=== PATIENT | male | born 1965 | race African-American/Black ===

== ENCOUNTER 2017-02-04 19:33 | Inpatient (IN) | payer BC ==
[~2017-02-04] VITALS: Ht 198.1 cm; Wt 98.1 kg
[2017-02-04] MEDS ORDERED: SODIUM CHLORIDE 0.9% 1,000 ML IV ONE ×2 (20:47→22:47)
[2017-02-04 23:15] LABS: DEFINITIVE VIEW TRANSMISSION; Hematocrit 26.1 % (41.0-53.0); Hemoglobin 7.8 g/dL (13.5-17.5); Mean Corpuscular Hemoglobin 25.8 pg (28.0-32.0); Mean Corpuscular Volume 85.8 fL (80.0-100.0); Mean Platelet Volume 9.1 fL (7.4-10.4); Platelet Count (auto) 172 10^3/uL (140-450); Red Cell Distribution Width 15.5 % (11.6-16.0); SUSPECT VIEW TRANSMISSION; White Blood Cell 7.8 10^3/uL (4.4-10.8)
[2017-02-04 23:25] LABS: Metamyelocytes % 0; Myelocytes % 0; Promyelocytes % 0; Reactive Lymphocytes 0
[2017-02-04] MEDS ORDERED: PIPERACILLIN-TAZOB 3.375GM 100 ML IV ONE (23:30)
[2017-02-04] MEDS ORDERED: VANCOMYCIN 1GM/250ML D5W 250 ML IV ONE (23:30)
[2017-02-04 23:31] LABS: Albumin 1.4 g/dL (3.4-5.0); Anion Gap 11 (5-15); Blood Urea Nitrogen 17 mg/dL (7-18); Calcium 7.1 mg/dL (8.5-10.1); Carbon Dioxide 22 mmol/L (21-32); Chloride 105 mmol/L (98-107); Glucose 75 mg/dL (74-106); Potassium 3.3 mmol/L (3.5-5.1); Sodium 138 mmol/L (136-145)
[2017-02-04 23:34] LABS: Aspartate Aminotransferase 24 U/L (15-37); BUN/Creatinine Ratio 18.3; GFR African American 110 mL/min; GFR Non-African American 91 mL/min; Partial Thromboplastin Time 43.3 sec (22.64-33.71)
[2017-02-04 23:35] LABS: INR 1.23 (0.9-1.15); Prothrombin Time 13.3 sec (9.37-12.3)
[2017-02-04 23:38] LABS: Alkaline Phosphatase 77 U/L (45-117); Bilirubin, Total 0.3 mg/dL (0.2-1.0); Total Protein 6.1 g/dL (6.4-8.2)
[2017-02-04] MEDS ORDERED: ACETAMINOPHEN 325 MG TAB PO ONE (23:45)
[2017-02-05] VITALS (49 sets, daily range): BP systolic 85–134; BP diastolic 47–88
[2017-02-05 00:03] LABS: Anisocytosis Slight; Hypochromia Slight; Ovalocytes MODERATE; Platelet Estimate Adequate
[2017-02-05] MEDS ORDERED: IOHEXOL 350 MG/ML 100ML IJ ONE (01:17)
[2017-02-05] MEDS ORDERED: IBUPROFEN 600 MG TAB PO ONE (03:15)
[2017-02-05] MEDS ORDERED: VANCOMYCIN PER PHARMACY 0 MG IV SCH (03:15)
[2017-02-05] MEDS ORDERED: IBUPROFEN 600 MG TAB PO PRN (03:15)
[2017-02-05] MEDS ORDERED: MORPHINE SULF INJ 2 MG/ML SYRINGE 1ML IV PRN ×2 (03:15)
[2017-02-05] MEDS ORDERED: ONDANSETRON HCL 4 MG/2 ML VIAL IV PRN (03:15)
[2017-02-05] MEDS ORDERED: HYDROcodone-ACET 5/325MG TAB PO PRN (03:15)
[2017-02-05] MEDS ORDERED: NITROGLYCERIN 0.4 MG SL TAB SL PRN (03:15)
[2017-02-05 04:02] LABS: Hematocrit 29.9 % (41.0-53.0); Hemoglobin 9.6 g/dL (13.5-17.5)
[2017-02-05] MEDS ORDERED: ACETAMINOPHEN 325 MG TAB PO ONE (04:15)
[2017-02-05] MEDS: PIPERACILLIN-TAZOB 3.375GM 100 ML IV SCH ×4 (06:30→23:45)
[2017-02-05] MEDS: SUCRALFATE 1 GM TAB PO SCH ×4 (07:00→22:18)
[2017-02-05 07:06] LABS: Urine Bilirubin Negative (Negative); Urine Color Yellow (Yellow); Urine Glucose Normal (Normal); Urine Hyaline Cast FEW /lpf (0 - 2); Urine Ketone Negative (Negative); Urine RBC 9 /hpf (0 - 3); Urine Squamous Epithelial Cell FEW /hpf (<5); Urine Urobilinogen Normal (Negative); Urine pH 7.5 (5.0-8.0)
[2017-02-05 07:37] LABS: Urine Blood 1+ /uL (Negative); Urine Nitrite POSITIVE (Negative)
[2017-02-05 08:14] LABS: Partial Thromboplastin Time 43.4 sec (22.64-33.71)
[2017-02-05 08:15] LABS: INR 1.22 (0.9-1.15); Prothrombin Time 13.2 sec (9.37-12.3)
[2017-02-05] MEDS: SODIUM CHLORIDE 0.9% 1,000 ML IV SCH ×2 (09:00→17:25)
[2017-02-05] MEDS: PANTOPRAZOLE 40 MG TAB PO SCH ×2 (09:46→22:18)
[2017-02-05] MEDS: VANCOMYCIN 1GM/250ML D5W 250 ML IV SCH ×2 (09:46→17:29)
[2017-02-05] MEDS ORDERED: SODIUM CHLORIDE 0.9% 1,000 ML IV ONE (10:30)
[2017-02-05] MEDS ORDERED: LIDOCAINE 2% JELLY 11ml (GLYDO) UR ONE (11:45)
[2017-02-05] MEDS ORDERED: LIDOCAINE HCL 2% TOP JELLY 5ML TOP ONE (12:00)
[2017-02-05] MEDS ORDERED: POTASSIUM CHL 20 Meq TABLET PO ONE ×2 (13:00→15:29)
[2017-02-05] MEDS ORDERED: VITAMINS A & D (TOPICAL) OINT 5GM TOP ONE (17:39)
[2017-02-06] VITALS (14 sets, daily range): BP systolic 98–109; BP diastolic 55–76
[2017-02-06] MEDS: VANCOMYCIN 1GM/250ML D5W 250 ML IV SCH ×3 (02:24→10:00)
[2017-02-06 03:06] LABS: Hematocrit 24.4 % (37.5-51.0); Hemoglobin 8.2 g/dL (12.6-17.7); Immature Granulocytes 1 % (.); MCH 27.6 pg (26.6-33.0); MCHC 33.6 g/dL (31.5-35.7); MCV 82 fL (79-97); Monocytes 8 % (.); Neutrophils 83 % (.); Platelets 186 x10E3/uL (150-379); RBC 2.97 x10E6/uL (4.14-5.80); RDW 16.4 % (12.3-15.4); WBC 9.5 x10E3/uL (3.4-10.8)
[2017-02-06 04:12] LABS: Albumin 1.2 g/dL (3.4-5.0); Calcium 7.1 mg/dL (8.5-10.1); Potassium 3.7 mmol/L (3.5-5.1)
[2017-02-06 04:14] LABS: BUN/Creatinine Ratio 17.3
[2017-02-06 04:16] LABS: Bilirubin, Total 0.4 mg/dL (0.2-1.0); Total Protein 5.6 g/dL (6.4-8.2)
[2017-02-06 04:40] LABS: Basophils # (auto) 0 uL; DEFINITIVE VIEW TRANSMISSION; Eosinophils # (auto) 0 uL; Eosinophils % (auto) 0.1 % (0.0-7.0); Hematocrit 24.7 % (41.0-53.0); Lymphocytes # (auto) 0.7 uL; Lymphocytes % (auto) 7.8 % (10.0-50.0); Mean Corpuscular Hemoglobin 27.7 pg (28.0-32.0); Mean Corpuscular Hgb Conc. 32.3 g/dL (32.0-36.0); Mean Corpuscular Volume 85.8 fL (80.0-100.0); Mean Platelet Volume 10.3 fL (7.4-10.4); Monocytes # (auto) 0.5 uL; Monocytes % (auto) 5.5 % (0.0-12.0); Neutrophils # (auto) 7.7 uL; Neutrophils % (auto) 86.6 % (37.0-80.0); Platelet Count (auto) 182 10^3/uL (140-450); Red Cell Distribution Width 16.1 % (11.6-16.0); SUSPECT VIEW TRANSMISSION; White Blood Cell 8.9 10^3/uL (4.4-10.8)
[2017-02-06] MEDS: PIPERACILLIN-TAZOB 3.375GM 100 ML IV SCH ×2 (06:19→11:44)
[2017-02-06] MEDS: SUCRALFATE 1 GM TAB PO SCH ×4 (06:19→23:07)
[2017-02-06] MEDS: SODIUM CHLORIDE 0.9% 1,000 ML IV SCH ×2 (07:15→22:03)
[2017-02-06] MEDS ORDERED: metroNIDAZOLE 500 MG TAB PO ONE (09:00)
[2017-02-06] MEDS: PANTOPRAZOLE 40 MG TAB PO SCH (09:36)
[2017-02-06 14:06] LABS: Absolute CD 4 Helper 55 /uL (359-1519)
[2017-02-06] MEDS ORDERED: cefTRIAXone 1GM/50ML D5W 50 ML IV ONE (14:15)
[2017-02-06] MEDS: metroNIDAZOLE 500 MG TAB PO SCH ×2 (14:36→23:06)
[2017-02-06] MEDS: TAMSULOSIN HYDROCHLORIDE 0.4 MG CAP PO SCH (17:29)
[2017-02-06] MEDS: VANCOMYCIN 1,250 MG in D5W 5% 250 ML IV SCH (23:06)
[2017-02-06] MEDS: FLORASTOR (S. BOULARDII) 250 MG CAP PO SCH (23:07)
[2017-02-07] VITALS (12 sets, daily range): BP systolic 97–117; BP diastolic 61–75
[2017-02-07] MEDS: SUCRALFATE 1 GM TAB PO SCH ×4 (06:16→21:53)
[2017-02-07] MEDS: metroNIDAZOLE 500 MG TAB PO SCH ×3 (06:16→21:53)
[2017-02-07] MEDS ORDERED: PANT40TA2 PO (06:40)
[2017-02-07] MEDS ORDERED: SUCR1TAB PO (06:42)
[2017-02-07] MEDS ORDERED: LACT10CA2 OR (06:44)
[2017-02-07 06:52] LABS: Basophils # (auto) 0 uL; Basophils % (auto) 0.2 % (0.0-2.0); DEFINITIVE VIEW TRANSMISSION; Eosinophils # (auto) 0.1 uL; Eosinophils % (auto) 0.7 % (0.0-7.0); Hematocrit 23.3 % (41.0-53.0); Hemoglobin 7.6 g/dL (13.5-17.5); Lymphocytes # (auto) 0.7 uL; Lymphocytes % (auto) 8.7 % (10.0-50.0); Mean Corpuscular Hemoglobin 27.7 pg (28.0-32.0); Mean Corpuscular Hgb Conc. 32.7 g/dL (32.0-36.0); Mean Corpuscular Volume 84.7 fL (80.0-100.0); Mean Platelet Volume 9.7 fL (7.4-10.4); Monocytes # (auto) 0.4 uL; Monocytes % (auto) 5.2 % (0.0-12.0); Neutrophils # (auto) 6.9 uL; Neutrophils % (auto) 85.2 % (37.0-80.0); Platelet Count (auto) 188 10^3/uL (140-450); Red Cell Distribution Width 16.1 % (11.6-16.0); White Blood Cell 8.1 10^3/uL (4.4-10.8)
[2017-02-07 07:00] LABS: Calcium 7.3 mg/dL (8.5-10.1)
[2017-02-07] MEDS: BOOST PLUS 8 ounce PO SCH ×2 (09:36→21:53)
[2017-02-07] MEDS: cefTRIAXone 1GM/50ML D5W 50 ML IV SCH (09:39)
[2017-02-07] MEDS: VANCOMYCIN 1,250 MG in D5W 5% 250 ML IV SCH ×2 (09:39→21:53)
[2017-02-07] MEDS: PANTOPRAZOLE 40 MG TAB PO SCH (09:40)
[2017-02-07] MEDS: FLORASTOR (S. BOULARDII) 250 MG CAP PO SCH ×2 (09:40→21:53)
[2017-02-07] MEDS ORDERED: POTASSIUM CHL 20 Meq TABLET PO ONE (10:15)
[2017-02-07] MEDS ORDERED: FLUCONAZOLE 100 MG TAB PO ONE (11:45)
[2017-02-07] MEDS: TAMSULOSIN HYDROCHLORIDE 0.4 MG CAP PO SCH (17:59)
[2017-02-08 05:39] VITALS: BP 102/69
[2017-02-08] MEDS: metroNIDAZOLE 500 MG TAB PO SCH ×3 (06:18→20:36)
[2017-02-08] MEDS: SUCRALFATE 1 GM TAB PO SCH ×4 (06:18→20:35)
[2017-02-08 07:20] LABS: BUN/Creatinine Ratio 13.2; Calcium 7.2 mg/dL (8.5-10.1); Potassium 3.1 mmol/L (3.5-5.1)
[2017-02-08 07:22] VITALS: BP 99/66
[2017-02-08 07:23] LABS: Basophils # (auto) 0 uL; Basophils % (auto) 0.3 % (0.0-2.0); Eosinophils # (auto) 0 uL; Eosinophils % (auto) 0.3 % (0.0-7.0); Hematocrit 26.2 % (41.0-53.0); Hemoglobin 8.6 g/dL (13.5-17.5); Lymphocytes # (auto) 0.6 uL; Lymphocytes % (auto) 10.4 % (10.0-50.0); Mean Corpuscular Hemoglobin 27.5 pg (28.0-32.0); Mean Corpuscular Volume 83.1 fL (80.0-100.0); Mean Platelet Volume 9.8 fL (7.4-10.4); Monocytes # (auto) 0.4 uL; Monocytes % (auto) 6.7 % (0.0-12.0); Neutrophils # (auto) 4.4 uL; Neutrophils % (auto) 82.3 % (37.0-80.0); Platelet Count (auto) 223 10^3/uL (140-450); Red Cell Distribution Width 17.5 % (11.6-16.0); SUSPECT VIEW TRANSMISSION; White Blood Cell 5.4 10^3/uL (4.4-10.8)
[2017-02-08 09:05] LABS: Basophils # (auto) 0 uL; Basophils % (auto) 0.5 % (0.0-2.0); Eosinophils # (auto) 0 uL; Eosinophils % (auto) 0.4 % (0.0-7.0); Hematocrit 28.7 % (41.0-53.0); Hemoglobin 9.4 g/dL (13.5-17.5); Lymphocytes # (auto) 0.6 uL; Mean Corpuscular Hemoglobin 27.3 pg (28.0-32.0); Mean Corpuscular Hgb Conc. 32.9 g/dL (32.0-36.0); Mean Corpuscular Volume 83.2 fL (80.0-100.0); Mean Platelet Volume 9.5 fL (7.4-10.4); Monocytes # (auto) 0.4 uL; Monocytes % (auto) 6.4 % (0.0-12.0); Neutrophils # (auto) 4.5 uL; Neutrophils % (auto) 81.7 % (37.0-80.0); Platelet Count (auto) 240 10^3/uL (140-450); Red Cell Distribution Width 17.7 % (11.6-16.0); SUSPECT VIEW TRANSMISSION; White Blood Cell 5.5 10^3/uL (4.4-10.8)
[2017-02-08 09:26] LABS: BUN/Creatinine Ratio 11.2; Calcium 7.2 mg/dL (8.5-10.1)
[2017-02-08 09:28] LABS: Potassium 2.9 mmol/L (3.5-5.1)
[2017-02-08] MEDS ORDERED: POTASSIUM CHL 20 Meq TABLET PO ONE (09:45)
[2017-02-08] MEDS ORDERED: POTASSIUM CHLORIDE 40 MEQ, LIDOCAINE 1% (LOCAL ANESTH.) 4 ML in SODIUM CHL 0.9% 250 ML IV ONE (09:45)
[2017-02-08] MEDS: cefTRIAXone 1GM/50ML D5W 50 ML IV SCH (09:54)
[2017-02-08] MEDS: BOOST PLUS 8 ounce PO SCH ×2 (09:55→20:35)
[2017-02-08] MEDS: FLUCONAZOLE 100 MG TAB PO SCH (09:55)
[2017-02-08] MEDS: FLORASTOR (S. BOULARDII) 250 MG CAP PO SCH ×2 (09:55→20:36)
[2017-02-08] MEDS: PANTOPRAZOLE 40 MG TAB PO SCH (09:55)
[2017-02-08] MEDS: VANCOMYCIN 1,250 MG in D5W 5% 250 ML IV SCH (09:56)
[2017-02-08 12:37] VITALS: BP 108/68
[2017-02-08] MEDS: SODIUM CHLORIDE 0.9% 1,000 ML IV SCH ×2 (12:45→20:36)
[2017-02-08 17:08] VITALS: BP 106/66
[2017-02-08] MEDS: TAMSULOSIN HYDROCHLORIDE 0.4 MG CAP PO SCH (17:51)
[2017-02-08 22:00] VITALS: BP 113/72
[2017-02-09 05:00] VITALS: BP 101/65
[2017-02-09] MEDS: metroNIDAZOLE 500 MG TAB PO SCH ×3 (05:54→21:59)
[2017-02-09] MEDS: SUCRALFATE 1 GM TAB PO SCH ×4 (05:54→21:59)
[2017-02-09 06:08] LABS: BUN/Creatinine Ratio 10.1; Calcium 7.1 mg/dL (8.5-10.1); Potassium 3.5 mmol/L (3.5-5.1)
[2017-02-09 09:00] VITALS: BP 80/48
[2017-02-09] MEDS: cefTRIAXone 1GM/50ML D5W 50 ML IV SCH (09:21)
[2017-02-09] MEDS: VANCOMYCIN 1,250 MG in D5W 5% 250 ML IV SCH (10:00)
[2017-02-09] MEDS: BOOST PLUS 8 ounce PO SCH ×2 (10:00→22:00)
[2017-02-09] MEDS: FLUCONAZOLE 100 MG TAB PO SCH (10:17)
[2017-02-09] MEDS: PANTOPRAZOLE 40 MG TAB PO SCH (10:18)
[2017-02-09 13:28] VITALS: BP 100/60
[2017-02-09] MEDS: FLORASTOR (S. BOULARDII) 250 MG CAP PO SCH ×2 (14:05→21:59)
[2017-02-09] MEDS: SODIUM CHLORIDE 0.9% 1,000 ML IV SCH (15:32)
[2017-02-09 16:53] VITALS: BP 137/80
[2017-02-09] MEDS: TAMSULOSIN HYDROCHLORIDE 0.4 MG CAP PO SCH (18:09)
[2017-02-09 22:00] VITALS: BP 109/75
[2017-02-09] MEDS: PRO-STAT 64 30ML PO SCH (22:15)
[2017-02-10] MEDS: SODIUM CHLORIDE 0.9% 1,000 ML IV SCH ×2 (04:21→17:41)
[2017-02-10] MEDS: metroNIDAZOLE 500 MG TAB PO SCH ×3 (05:01→21:01)
[2017-02-10] MEDS: SUCRALFATE 1 GM TAB PO SCH ×4 (05:10→21:01)
[2017-02-10 05:35] VITALS: BP 116/77
[2017-02-10 06:09] LABS: Hematocrit 28.4 % (41.0-53.0); Hemoglobin 9.3 g/dL (13.5-17.5)
[2017-02-10 06:34] LABS: BUN/Creatinine Ratio 9.2; Calcium 7.2 mg/dL (8.5-10.1); Potassium 3.8 mmol/L (3.5-5.1)
[2017-02-10 09:16] VITALS: BP 93/60
[2017-02-10] MEDS: BOOST PLUS 8 ounce PO SCH ×2 (09:25→21:01)
[2017-02-10] MEDS: PANTOPRAZOLE 40 MG TAB PO SCH (09:31)
[2017-02-10] MEDS: FLUCONAZOLE 100 MG TAB PO SCH (09:31)
[2017-02-10] MEDS: cefTRIAXone 1GM/50ML D5W 50 ML IV SCH (09:31)
[2017-02-10] MEDS: FLORASTOR (S. BOULARDII) 250 MG CAP PO SCH ×2 (09:31→21:01)
[2017-02-10] MEDS: PRO-STAT 64 30ML PO SCH ×2 (10:00→21:02)
[2017-02-10] MEDS: VANCOMYCIN 1,250 MG in D5W 5% 250 ML IV SCH (10:00)
[2017-02-10 13:58] VITALS: BP 110/75
[2017-02-10 17:03] VITALS: BP 108/67
[2017-02-10] MEDS: TAMSULOSIN HYDROCHLORIDE 0.4 MG CAP PO SCH (17:41)
[2017-02-10 21:43] VITALS: BP 114/72
[2017-02-11] MEDS: metroNIDAZOLE 500 MG TAB PO SCH ×3 (05:21→22:09)
[2017-02-11] MEDS: SUCRALFATE 1 GM TAB PO SCH ×4 (05:21→22:09)
[2017-02-11 05:48] VITALS: BP 98/63
[2017-02-11 06:38] LABS: Hematocrit 27.3 % (41.0-53.0); Hemoglobin 8.9 g/dL (13.5-17.5)
[2017-02-11 07:04] LABS: BUN/Creatinine Ratio 9.6; Magnesium 2.2 mg/dL (1.6-2.6); Potassium 3.5 mmol/L (3.5-5.1)
[2017-02-11] MEDS: SODIUM CHLORIDE 0.9% 1,000 ML IV SCH (07:25)
[2017-02-11 08:56] LABS: HIV-1/O/2 Scrn w/Reflex Positive (Negative)
[2017-02-11] MEDS: FLUCONAZOLE 100 MG TAB PO SCH (09:15)
[2017-02-11] MEDS: cefTRIAXone 1GM/50ML D5W 50 ML IV SCH (09:15)
[2017-02-11] MEDS: FLORASTOR (S. BOULARDII) 250 MG CAP PO SCH ×2 (09:15→22:09)
[2017-02-11] MEDS: PANTOPRAZOLE 40 MG TAB PO SCH (09:15)
[2017-02-11] MEDS: PRO-STAT 64 30ML PO SCH ×2 (09:17→22:10)
[2017-02-11] MEDS: BOOST PLUS 8 ounce PO SCH ×2 (09:17→22:09)
[2017-02-11 09:21] VITALS: BP 97/63
[2017-02-11] MEDS: VANCOMYCIN 1,250 MG in D5W 5% 250 ML IV SCH (10:29)
[2017-02-11 12:55] VITALS: BP 100/68
[2017-02-11 17:42] VITALS: BP 98/70
[2017-02-11] MEDS: TAMSULOSIN HYDROCHLORIDE 0.4 MG CAP PO SCH (18:17)
[2017-02-11 22:00] VITALS: BP 103/64
[2017-02-12 05:30] VITALS: BP 104/73
[2017-02-12] MEDS: metroNIDAZOLE 500 MG TAB PO SCH ×3 (05:38→21:40)
[2017-02-12] MEDS: SUCRALFATE 1 GM TAB PO SCH ×4 (05:38→21:41)
[2017-02-12 05:42] LABS: Calcium 6.9 mg/dL (8.5-10.1); Potassium 3.8 mmol/L (3.5-5.1)
[2017-02-12 05:45] LABS: BUN/Creatinine Ratio 8.4
[2017-02-12 09:00] VITALS: BP 98/70
[2017-02-12] MEDS: PRO-STAT 64 30ML PO SCH ×2 (09:19→21:41)
[2017-02-12] MEDS: PANTOPRAZOLE 40 MG TAB PO SCH (09:19)
[2017-02-12] MEDS: FLUCONAZOLE 100 MG TAB PO SCH (09:19)
[2017-02-12] MEDS: FLORASTOR (S. BOULARDII) 250 MG CAP PO SCH ×2 (09:19→21:40)
[2017-02-12] MEDS: cefTRIAXone 1GM/50ML D5W 50 ML IV SCH (09:19)
[2017-02-12] MEDS: BOOST PLUS 8 ounce PO SCH ×3 (09:19→22:08)
[2017-02-12] MEDS: VANCOMYCIN 1,250 MG in D5W 5% 250 ML IV SCH (11:41)
[2017-02-12] MEDS ORDERED: MORPHINE SULF INJ 2 MG/ML SYRINGE 1ML IV PRN (12:30)
[2017-02-12] MEDS ORDERED: HYDROcodone-ACET 5/325MG TAB PO PRN (12:30)
[2017-02-12] MEDS ORDERED: SODIUM CHLORIDE 0.9% 1,000 ML IV SCH (12:45)
[2017-02-12 15:52] VITALS: BP 105/71
[2017-02-12 17:00] VITALS: BP 107/71
[2017-02-12] MEDS: TAMSULOSIN HYDROCHLORIDE 0.4 MG CAP PO SCH (17:25)
[2017-02-12 22:00] VITALS: BP 107/69
[2017-02-13 05:30] VITALS: BP 141/91
[2017-02-13] MEDS: metroNIDAZOLE 500 MG TAB PO SCH ×2 (05:50→14:00)
[2017-02-13] MEDS: SUCRALFATE 1 GM TAB PO SCH ×2 (05:51→11:30)
[2017-02-13 09:00] VITALS: BP 105/70
[2017-02-13] MEDS: cefTRIAXone 1GM/50ML D5W 50 ML IV SCH (09:55)
[2017-02-13] MEDS: PANTOPRAZOLE 40 MG TAB PO SCH (09:55)
[2017-02-13] MEDS: FLUCONAZOLE 100 MG TAB PO SCH (09:55)
[2017-02-13] MEDS: FLORASTOR (S. BOULARDII) 250 MG CAP PO SCH (09:55)
[2017-02-13] MEDS: PRO-STAT 64 30ML PO SCH (10:11)
[2017-02-13] MEDS: BOOST PLUS 8 ounce PO SCH (10:11)
[2017-02-13 13:00] VITALS: BP 107/74
[2017-02-13 15:14] VITALS: BP 107/74
[2017-02-14 07:56] LABS: HIV 2 Ab Negative (Negative)
[2017-02-14 08:14] LABS: HIV 1 Ab Positive
== END 2017-02-13 18:17 | disposition home or self-care (01) | DRG 871 ==
LOC: EDBD 19:33 → ER 19:44 → TELE 19:45 → ICU WEST 02-05 05:23 → TELE-WESTW 02-06 17:05 → WEST WING 02-12 22:21
PROVIDERS: ADMIT Nurse Practitioner; ATTEND Internal Medicine
PROC: 30233N1 Transfusion of Nonautologous Red Blood Cells into Peripheral Vein, Percutaneous Approach (ICD-10-PCS; principal; 2017-02-07)
DX: A41.9 Sepsis, unspecified organism (principal); E43 Unspecified severe protein-calorie malnutrition; J18.9 Pneumonia, unspecified organism; I31.3 Pericardial effusion (noninflammatory); N39.0 Urinary tract infection, site not specified; A04.7 Enterocolitis due to Clostridium difficile; D64.9 Anemia, unspecified; E87.6 Hypokalemia; B95.62 Methicillin resistant Staphylococcus aureus infection as the cause of diseases classified elsewhere; K80.20 Calculus of gallbladder without cholecystitis without obstruction; N18.2 Chronic kidney disease, stage 2 (mild); N50.89 Other specified disorders of the male genital organs; B96.20 Unspecified Escherichia coli [E. coli] as the cause of diseases classified elsewhere; B95.2 Enterococcus as the cause of diseases classified elsewhere; N43.3 Hydrocele, unspecified; N49.2 Inflammatory disorders of scrotum; N50.3 Cyst of epididymis; Z21 Asymptomatic human immunodeficiency virus [HIV] infection status; R32 Unspecified urinary incontinence; Z87.11 Personal history of peptic ulcer disease; Z68.23 Body mass index [BMI] 23.0-23.9, adult; Z87.891 Personal history of nicotine dependence
CPT/HCPCS: 36415; 71010; 71275; 76870; 80048; 80053; 80202; 81001; 82270; 82550; 83605; 83735; 84484; 85007; 85014; 85018; 85025; 85027; 85048; 85379; 85384; 85610; 85730; 86360; 86701; 86850; 86900; 86901; 86920; 87040; 87045; 87077; 87081; 87086; 87088; 87186; 87205; 87493; 87899; 93005; 93306; 94761; 96361; 96365; 96366; 96367; 97001; J0696; J2001; J2543; J7060

== ENCOUNTER 2017-02-21 17:58 | Emergency (ER) | payer BC ==
[~2017-02-21] VITALS: Ht 198.1 cm; Wt 90.7 kg
[~2017-02-21 17:58] MED LIST: LACT10CA2 OR; PANT40TA2 PO; SUCR1TAB PO
[2017-02-21 22:33] LABS: Basophils # (auto) 0 uL; Basophils % (auto) 0.5 % (0.0-2.0); DEFINITIVE VIEW TRANSMISSION; Eosinophils # (auto) 0 uL; Eosinophils % (auto) 0.2 % (0.0-7.0); Hematocrit 20.8 % (41.0-53.0); Hemoglobin 7.1 g/dL (13.5-17.5); Lymphocytes % (auto) 31.8 % (10.0-50.0); Mean Corpuscular Hemoglobin 28.7 pg (28.0-32.0); Mean Corpuscular Hgb Conc. 34.1 g/dL (32.0-36.0); Mean Corpuscular Volume 84.1 fL (80.0-100.0); Mean Platelet Volume 11.1 fL (7.4-10.4); Monocytes # (auto) 0.4 uL; Monocytes % (auto) 12.9 % (0.0-12.0); Neutrophils # (auto) 1.8 uL; Neutrophils % (auto) 54.6 % (37.0-80.0); Red Cell Distribution Width 17.6 % (11.6-16.0); White Blood Cell 3.3 10^3/uL (4.4-10.8)
[2017-02-21 22:49] LABS: Albumin 1.8 g/dL (3.4-5.0); BUN/Creatinine Ratio 9.2; Calcium 7.6 mg/dL (8.5-10.1); Potassium 3.5 mmol/L (3.5-5.1)
[2017-02-21 22:52] LABS: Bilirubin, Total 0.3 mg/dL (0.2-1.0); Total Protein 6.3 g/dL (6.4-8.2)
[2017-02-21 22:58] LABS: INR 1.12 (0.9-1.15); Partial Thromboplastin Time 32.4 sec (22.64-33.71); Prothrombin Time 12.2 sec (9.37-12.3)
[2017-02-21 23:07] LABS: Platelet Count (auto) 19 10^3/uL (140-450)
[2017-02-21 23:12] LABS: Urine Bilirubin Negative (Negative); Urine Color Red (Yellow); Urine Glucose Normal (Normal); Urine Ketone Negative (Negative); Urine Nitrite Negative (Negative); Urine RBC 1215 /hpf (0 - 3); Urine Urobilinogen Normal (Negative)
[2017-02-21 23:17] LABS: Urine Blood 3+ /uL (Negative)
[2017-02-21 23:53] VITALS: BP 112/75
[2017-02-22] MEDS ORDERED: LEVOFLOXACIN 500MG 100 ML IV ONE (05:45)
== END 2017-02-22 05:57 | disposition home or self-care (01) ==
LOC: ER 17:58
DX: N39.0 Urinary tract infection, site not specified (principal); D64.9 Anemia, unspecified; N50.9 Disorder of male genital organs, unspecified
CPT/HCPCS: 36415; 74176; 76870; 80053; 81001; 85025; 85610; 85730; 96365; 99285; J1956

== ENCOUNTER → 2017-04-19 | Outpatient (CLI) | payer BC | END | disposition home or self-care (01) | LOC: Rad HDHVI 14:50 | PROVIDERS: ATTEND Internal Medicine Cardiovascular Disease | DX: I10 Essential (primary) hypertension (principal); J44.9 Chronic obstructive pulmonary disease, unspecified | CPT/HCPCS: 93306 ==

== ENCOUNTER 2018-05-22 02:23 | Emergency (ER) | payer BC, MEDICAID ==
[~2018-05-22] VITALS: Ht 198.1 cm; Wt 158.8 kg
[2018-05-22 02:58] LABS: Basophils # (auto) 0 uL; Basophils % (auto) 0.7 % (0.0-2.0); Eosinophils # (auto) 0.2 uL; Eosinophils % (auto) 2.5 % (0.0-7.0); Hematocrit 40.8 % (41.0-53.0); Hemoglobin 13.4 g/dL (13.5-17.5); Lymphocytes # (auto) 2.9 uL; Lymphocytes % (auto) 43.5 % (10.0-50.0); Mean Corpuscular Hemoglobin 28.8 pg (28.0-32.0); Mean Corpuscular Hgb Conc. 32.9 g/dL (32.0-36.0); Mean Corpuscular Volume 87.4 fL (80.0-100.0); Monocytes # (auto) 0.5 uL; Monocytes % (auto) 7.2 % (0.0-12.0); Neutrophils # (auto) 3.1 uL; Neutrophils % (auto) 46.1 % (37.0-80.0); Nucleated Red Blood Cells % 0.2 %; Platelet Count (auto) 331 10^3/uL (140-450); Red Blood Cells 4.67 10^6/uL (4.5-5.90); Red Cell Distribution Width 14.6 % (11.8-14.3); White Blood Cell 6.7 10^3/uL (4.4-10.8)
[2018-05-22 03:14] LABS: Alanine Aminotransferase 43 U/L (16-61); Albumin 2.8 g/dL (3.4-5.0); Anion Gap 10 (5-15); Aspartate Aminotransferase 45 U/L (15-37); BUN/Creatinine Ratio 20.6; Blood Urea Nitrogen 22 mg/dL (7-18); Calcium 8.9 mg/dL (8.5-10.1); Carbon Dioxide 23 mmol/L (21-32); Chloride 109 mmol/L (98-107); GFR African American 93 mL/min; GFR Non-African American 77 mL/min; Glucose 95 mg/dL (74-106); Lipase 218 U/L (73-393); Magnesium 2.4 mg/dL (1.6-2.6); Potassium 3.9 mmol/L (3.5-5.1); Sodium 142 mmol/L (136-145)
[2018-05-22 03:19] LABS: Alkaline Phosphatase 95 U/L (45-117); Bilirubin, Total 0.3 mg/dL (0.2-1.0); Total Protein 8.5 g/dL (6.4-8.2)
[2018-05-22 07:13] VITALS: BP 114/79
== END 2018-05-22 07:15 | disposition home or self-care (01) ==
LOC: EDBD 02:23 → ER 02:25
DX: K80.20 Calculus of gallbladder without cholecystitis without obstruction (principal); Z79.899 Other long term (current) drug therapy; Z21 Asymptomatic human immunodeficiency virus [HIV] infection status
CPT/HCPCS: 36415; 76705; 80053; 83690; 83735; 84484; 85025; 93005